=== PATIENT | male | born 1960 | race Two or more races ===

== ENCOUNTER 2018-07-18 22:10 | Inpatient (IN) | payer BC, OTHER ==
[~2018-07-18] VITALS: Ht 175.3 cm; Wt 134.2 kg
[2018-07-18 22:59] LABS: BASOPHILS # (AUTO) 0.03 x10^3/uL (0-0.1); BASOPHILS % (AUTO) 0 % (0-1); EOSINOPHILS # (AUTO) 0.15 x10^3/uL (0-0.4); EOSINOPHILS % (AUTO) 2 % (1-7); LYMPHOCYTES # (AUTO) 1.68 x10^3/uL (1-3.4); LYMPHOCYTES % (AUTO) 22 % (22-44); MD NO; MEAN CORPUSCULAR HEMOGLOBIN 31.2 pg (27.5-34.5); MEAN CORPUSCULAR HGB CONC 33.8 g/dL (33.2-36.2); MEAN CORPUSCULAR VOLUME 92.2 fL (81-97); MEAN PLATELET VOLUME 8.3 fL (7.4-10.4); MONOCYTES # (AUTO) 0.53 x10^3/uL (0.2-0.8); MONOCYTES % (AUTO) 7 % (2-9); NEUTROPHILS # (AUTO) 5.34 x10^3/uL (1.8-6.8); NEUTROPHILS % (AUTO) 69 % (42-75); PLATELET COUNT 235 x10^3/uL (130-400); RED BLOOD COUNT 5.68 x10^6/uL (4.38-5.82); RED CELL DISTRIBUTION WIDTH 13.1 % (9.4-14.8)
[2018-07-18 23:11] LABS: ALBUMIN 3.7 g/dL (3.4-5.0); ANION GAP 7 mmol/L (5-15); CALCIUM 8.2 mg/dL (8.5-10.1); CHLORIDE 104 mmol/L (98-107)
[2018-07-18 23:17] LABS: ALANINE AMINOTRANSFERASE 33 U/L (12-78); ALKALINE PHOSPHATASE 67 U/L (45-117); BILIRUBIN,TOTAL 0.4 mg/dL (0.2-1.0); CREATININE 1.55 mg/dL (0.7-1.3); TOTAL PROTEIN 6.7 g/dL (6.4-8.2)
[2018-07-18 23:22] LABS: TROPONIN I 0.266 ng/mL (0.000-0.045)
[2018-07-18] MEDS ORDERED: ASPIRIN 81 MG TABLET CHEW PO ONE (23:30)
[2018-07-18] MEDS ORDERED: ASPIRIN 81 MG TABLET CHEW ONE (23:44)
[2018-07-19] MEDS ORDERED: DOCUSATE 100 MG CAPSULE PO PRN (00:30)
[2018-07-19] MEDS ORDERED: BISACODYL 10 MG SUPP PR PRN (00:30)
[2018-07-19] MEDS ORDERED: ONDANSETRON 4 MG TABLET PO PRN (00:30)
[2018-07-19] MEDS ORDERED: POLYETHYLENE GLYCOL 17 GM PACKET PO PRN (00:30)
[2018-07-19] MEDS ORDERED: ACETAMINOPHEN 325 MG TABLET PO PRN (00:30)
[2018-07-19] MEDS ORDERED: ENALAPRILAT 1.25 MG/ML, 2ML IV PRN (00:30)
[2018-07-19] MEDS ORDERED: ATORVASTATIN 40 MG TABLET PO SCH ×2 (00:30→10:25)
[2018-07-19 01:04] VITALS: BP 128/73
[2018-07-19 01:04] LABS: HEMOGLOBIN A1C 8.9 % (4.2-6.3)
[2018-07-19 01:10] VITALS: BP 142/77
[2018-07-19] MEDS ORDERED: METF10007 PO (01:41)
[2018-07-19] MEDS ORDERED: CHOL200040 PO (01:41)
[2018-07-19] MEDS ORDERED: LOSA100T7 PO (01:41)
[2018-07-19] MEDS ORDERED: ASPI-647 PO (01:41)
[2018-07-19] MEDS ORDERED: ATOR40TA78 PO (01:41)
[2018-07-19] MEDS ORDERED: GLIP10TA24 PO (01:41)
[2018-07-19 05:18] LABS: BASOPHILS # (AUTO) 0.04 x10^3/uL (0-0.1); BASOPHILS % (AUTO) 1 % (0-1); EOSINOPHILS # (AUTO) 0.23 x10^3/uL (0-0.4); EOSINOPHILS % (AUTO) 3 % (1-7); LYMPHOCYTES # (AUTO) 2.08 x10^3/uL (1-3.4); LYMPHOCYTES % (AUTO) 28 % (22-44); MD NO; MEAN CORPUSCULAR HEMOGLOBIN 31.2 pg (27.5-34.5); MEAN CORPUSCULAR HGB CONC 33.9 g/dL (33.2-36.2); MEAN CORPUSCULAR VOLUME 92.3 fL (81-97); MEAN PLATELET VOLUME 8.1 fL (7.4-10.4); MONOCYTES % (AUTO) 8 % (2-9); NEUTROPHILS # (AUTO) 4.44 x10^3/uL (1.8-6.8); NEUTROPHILS % (AUTO) 60 % (42-75); PLATELET COUNT 213 x10^3/uL (130-400); RED BLOOD COUNT 5.49 x10^6/uL (4.38-5.82); RED CELL DISTRIBUTION WIDTH 12.9 % (9.4-14.8)
[2018-07-19 05:26] LABS: ALANINE AMINOTRANSFERASE 30 U/L (12-78); ALBUMIN 3.4 g/dL (3.4-5.0); ANION GAP 7 mmol/L (5-15); CHLORIDE 105 mmol/L (98-107); CREATININE 1.36 mg/dL (0.7-1.3)
[2018-07-19 05:28] LABS: ALKALINE PHOSPHATASE 68 U/L (45-117); BILIRUBIN,TOTAL 0.5 mg/dL (0.2-1.0); TOTAL PROTEIN 6.4 g/dL (6.4-8.2)
[2018-07-19] MEDS ORDERED: ASPIRIN 81 MG TABLET EC PO SCH (06:00)
[2018-07-19 07:31] VITALS: BP 131/80
[2018-07-19] MEDS ORDERED: ASPIRIN 81 MG TABLET CHEW PO/NG SCH (09:00)
[2018-07-19] MEDS: LOSARTAN 50MG TABLET PO SCH (10:29)
[2018-07-19] MEDS: CHOLECALCIFEROL 1,000 UNIT TABLET PO SCH (10:29)
[2018-07-19 11:29] LABS: TROPONIN I 0.237 ng/mL (0.000-0.045)
[2018-07-19] MEDS: INSULIN LISPRO 100 UNITS/ML, PEN SQ-INSULIN SCH ×3 (11:50→20:17)
[2018-07-19 13:54] VITALS: BP 156/93
[2018-07-19 18:56] VITALS: BP 139/76
[2018-07-20 00:56] VITALS: BP 145/70
[2018-07-20 05:26] LABS: ANION GAP 6 mmol/L (5-15); CALCIUM 7.8 mg/dL (8.5-10.1); CHLORIDE 105 mmol/L (98-107); CHOLESTEROL, TOTAL 115 mg/dL (140-239); CREATININE 1.33 mg/dL (0.7-1.3); TRIGLYCERIDES 188 mg/dL (50-200); VLDL CHOLESTEROL 38 mg/dL (0-25)
[2018-07-20 05:27] LABS: BASOPHILS # (AUTO) 0.05 x10^3/uL (0-0.1); BASOPHILS % (AUTO) 1 % (0-1); EOSINOPHILS # (AUTO) 0.24 x10^3/uL (0-0.4); EOSINOPHILS % (AUTO) 3 % (1-7); LYMPHOCYTES # (AUTO) 1.98 x10^3/uL (1-3.4); LYMPHOCYTES % (AUTO) 27 % (22-44); MD NO; MEAN CORPUSCULAR HEMOGLOBIN 31.6 pg (27.5-34.5); MEAN CORPUSCULAR HGB CONC 34.2 g/dL (33.2-36.2); MEAN CORPUSCULAR VOLUME 92.4 fL (81-97); MEAN PLATELET VOLUME 8.4 fL (7.4-10.4); MONOCYTES # (AUTO) 0.53 x10^3/uL (0.2-0.8); MONOCYTES % (AUTO) 7 % (2-9); NEUTROPHILS # (AUTO) 4.66 x10^3/uL (1.8-6.8); NEUTROPHILS % (AUTO) 62 % (42-75); PLATELET COUNT 185 x10^3/uL (130-400); RED BLOOD COUNT 5.36 x10^6/uL (4.38-5.82); RED CELL DISTRIBUTION WIDTH 13.2 % (9.4-14.8)
[2018-07-20 05:28] LABS: CHOL/HDL RATIO 3.2; HDL CHOL % 31 % (26-37); HDL CHOLESTEROL (DIRECT) 36 mg/dL (40-60); LDL CHOLESTEROL,CALCULATED 41 mg/dL (54-169); LDL/HDL RATIO 1.1 (0.5-3.0)
[2018-07-20 05:33] LABS: TROPONIN I 0.259 ng/mL (0.000-0.045)
[2018-07-20] MEDS ORDERED: ATORVASTATIN 40 MG TABLET PO SCH (06:00)
[2018-07-20] MEDS ORDERED: CHOLECALCIFEROL 1,000 UNIT TABLET PO SCH (06:00)
[2018-07-20] MEDS: CHOLECALCIFEROL 1,000 UNIT TABLET PO SCH (08:49)
[2018-07-20] MEDS: LOSARTAN 50MG TABLET PO SCH (08:50)
[2018-07-20] MEDS: INSULIN LISPRO 100 UNITS/ML, PEN SQ-INSULIN SCH ×3 (08:50→16:17)
[2018-07-20] MEDS ORDERED: LOSARTAN 50MG TABLET PO SCH (09:00)
[2018-07-20] MEDS ORDERED: ASPIRIN 325 MG TABLET EC PO SCH (09:00)
[2018-07-20 09:21] VITALS: BP 142/90
[2018-07-20 13:17] VITALS: BP 158/75
[2018-07-20] MEDS ORDERED: CLOP75TA PO (15:29)
[2018-07-20] MEDS ORDERED: CLOPIDOGREL 75 MG TABLET PO SCH (15:30)
== END 2018-07-20 17:42 | DRG 64 ==
LOC: ED 22:45 → EDIP 07-19 00:01 → 5SO 07-19 00:47
PROVIDERS: ADMIT Internal Medicine; ATTEND Internal Medicine
DX: I63.9 Cerebral infarction, unspecified (principal); I21.4 Non-ST elevation (NSTEMI) myocardial infarction; D68.69 Other thrombophilia; Z68.41 Body mass index [BMI] 40.0-44.9, adult; N17.9 Acute kidney failure, unspecified; R47.01 Aphasia; E11.65 Type 2 diabetes mellitus with hyperglycemia; E66.01 Morbid (severe) obesity due to excess calories; E78.5 Hyperlipidemia, unspecified; F12.90 Cannabis use, unspecified, uncomplicated; F17.210 Nicotine dependence, cigarettes, uncomplicated; I11.9 Hypertensive heart disease without heart failure; I48.91 Unspecified atrial fibrillation; I65.22 Occlusion and stenosis of left carotid artery; Z66 Do not resuscitate; Z79.82 Long term (current) use of aspirin; Z82.3 Family history of stroke; Z83.3 Family history of diabetes mellitus
CPT/HCPCS: 36415; 70450; 70498; 70551; 80048; 80053; 80061; 82962; 83036; 84484; 85025; 93005; 93306; 93880; 99285; G0378; 92523-GN; J1815